=== PATIENT | male | born 1960 | race Caucasian/White ===

== ENCOUNTER 2019-07-07 18:52 | Emergency (ER) | payer OTHER ==
[~2019-07-07] VITALS: Ht 182.9 cm; Wt 95.7 kg
[2019-07-07] MEDS ORDERED: diphenhydrAMINE 50 MG/1 ML VIAL IV ONE (19:00)
[2019-07-07] MEDS ORDERED: methylPREDNISolone SOD SUCC 125 MG/2 ML VIAL IV ONE (19:00)
[2019-07-07] MEDS ORDERED: EPINEPHRINE 1 MG/1 ML AMP SQ ONE (19:00)
[2019-07-07] MEDS ORDERED: IV NORMAL SALINE 1000 ML BAG IV ONE (19:00)
[2019-07-07] MEDS ORDERED: FAMOTIDINE. 20 MG/2 ML VIAL IV ONE ×2 (19:00→19:03)
--- NOTE | 2019-07-07 19:00 | NUR ---
Patient presents to ER with c/o of allergic reactions after eating fish. Patient is alert and oriented x 4, no airway compromise noted. Patient noted to have hives on lower abdominal area. Placed in bed 1A. Dr. Kramer at bedside on arrival.
[2019-07-07] MEDS ORDERED: methylPREDNISolone SOD SUCC 125 MG/2 ML VIAL ONE (19:03)
[2019-07-07] MEDS ORDERED: EPINEPHRINE 1 MG/1 ML AMP ONE (19:03)
[2019-07-07] MEDS ORDERED: diphenhydrAMINE 50 MG/1 ML VIAL ONE (19:03)
--- NOTE | 2019-07-07 19:59 | NUR ---
Patient in [facility], no acute distress. Patient states he feels better after medications.
[2019-07-07 20:17] VITALS: BP 119/73
--- NOTE | 2019-07-07 20:25 | NUR ---
Patient discharged to home in stable conditon. DC instructions and prescriptions given and reviewed with patient. Verbalized understanding. IV dc'd noted with tip intact. Left ER in stable condition, ambulated out of ER with steady gait, denied need for help out.
== END 2019-07-07 20:25 | disposition home or self-care (01) ==
LOC: ER 18:56
DX: T78.3XXA Angioneurotic edema, initial encounter (principal); T78.1XXA Other adverse food reactions, not elsewhere classified, initial encounter; X58.XXXA Exposure to other specified factors, initial encounter; Z79.899 Other long term (current) drug therapy; Z79.82 Long term (current) use of aspirin
CPT/HCPCS: 93005; 96374; 96375; 99283; J0171; J1200; J2930; J3490; A4663; J7030